=== PATIENT | female | born 1975 | race Caucasian/White ===

== ENCOUNTER 2017-04-13 22:11 | Emergency (ER) | payer OTHER ==
[2017-04-13 22:29] VITALS: BP 112/68; PULSE 85; TEMP 99.2; BMI 34.3
[2017-04-13] MEDS ORDERED: SODIUM CHLORIDE 1,000 ML IV STA (23:08)
--- NOTE | 2017-04-13 23:20 | PDOC ---
History of Present Illness - General History Source: Patient Exam Limitations: No Limitations - History of Present Illness Initial Comments: 04/13/17 23:37 The patient is a 41 year old female with a significant past medical history of anemia who presents to the ED with complaints of generalized weakness and lower quadrant pain since earlier today. The patient recently had an endoscopy with biopsy done secondary to weight gain on 04/07/17. She states her GI injected sclerosing agent during the procedure and the patient has been on a liquid diet for a week. The patient reports she woke up today with a sudden onset of generalized weakness and lower quadrant pain. She reports nausea and chills associated with present symptoms. She took a tylenol earlier today with slight relief of present symptoms. Patient also reports multiple episodes of watery stool since Friday. She states everything she drinks goes right through her. Patient states she developed dumping syndrome s/p gastric bypass. Patient notes her present symptoms feel similar to that of her history of dumping syndrome. She states her last menstrual cycle was several days ago. Denies chest pain or shortness of breath. Denies hematochezia. Denies dysuria or change in urinary output. Denies any other symptoms. Surgical Hx: Gastric bypass (7 years ago), endoscopy (04/07/17) GI: Dr. Sheba Rico [phone] <Jerod Matt - Last Filed: 04/13/17 23:50> <Lilia Ching - Last Filed: 04/14/17 00:12> - General Chief Complaint: Weakness Stated Complaint: WEAKNESS/DIZZINESS Time Seen by Provider: 04/13/17 22:41 Past History <Jerod Matt - Last Filed: 04/13/17 23:50> - Past Medical History Anemia: Yes Asthma: No Cancer: No Cardiac Disorders: No Diabetes: No HTN: No Seizures: No Thyroid Disease: No - Surgical History Abdominal Surgery: Yes (GASTRIC BYPASS) - Reproductive History Tubal Ligation: (essure) - Suicide/Smoking/Psychosocial Hx Smoking History: Never smoked Have you smoked in the past 12 months: No Information on smoking cessation initiated: No Hx Alcohol Use: No Drug/Substance Use Hx: No Substance Use Type: None Hx Substance Use Treatment: No <Lilia Ching - Last Filed: 04/14/17 00:12> - Past Medical History Allergies/Adverse Reactions: Allergies Allergy/AdvReac Type Severity Reaction Status Date / Time No Known Drug Allergies Allergy Verified 04/13/17 22:26 shrimp AdvReac Verified 04/13/17 22:26 Home Medications: Ambulatory Orders Ibuprofen [Motrin -] 600 mg PO Q4H PRN 12/16/15 Amoxicillin/Potassium Clav [Augmentin 875-125 Tablet] 1 each PO Q12H #10 tablet 12/17/15 Docusate Sodium [Colace -] 100 mg PO DAILY #30 capsule 12/17/15 Ferrous Sulfate [Feosol] 325 mg PO TID #90 tablet 12/17/15 Review of Systems - Review of Systems Able to Perform ROS?: Yes Comments:: 04/13/17 23:37 CONSTITUTIONAL: + chills, generalized weakness No reported: Fever, Diaphoresis, Malaise, Loss of Appetite HEENT: No reported: Rhinorrhea, Nasal Congestion, Throat Pain, Throat Swelling, Difficulty Swallowing, Mouth Swelling, Ear Pain, Eye Pain, Visual Changes CARDIOVASCULAR: No reported: Chest Pain, Syncope, Palpitations, Irregular Heart Rate, Lightheadedness, Peripheral Edema RESPIRATORY: No reported: Cough, Shortness of Breath, SOB with Exertion, Orthopnea, Wheezing , Stridor, Hemoptysis GASTROINTESTINAL: + abdominal pain, nausea, diarrhea No reported: Abdominal Distension, Constipation, Melena, Hematochezia GENITOURINARY: No reported: Dysuria, Frequency, Urgency, Hesitancy, Flank Pain, Genital Pain MUSCULOSKELETAL: No reported: Myalgia, Arthralgia, Joint Swelling, Back pain, Neck Pain SKIN: No reported: Rash, Itching, Pallor HEMEATOLOGIC/IMMUNOLOGIC: No reported: Easy Bleeding, Easy Bruising, Lymphadenopathy, Frequent infections ENDOCRINE: No reported: Unexplained Weight Gain, Unexplained Weight Loss, Heat Intolerance , Cold Intolerance NEUROLOGIC: No reported: Headache, Focal Weakness, Paresthesias, Vertigo, Lightheadedness, Unsteady Gait, Seizure, Mental Status Changes, Incontinence PSYCHIATRIC: No reported: Anxiety, Depression All Other Systems: Reviewed and Negative <Jerod Matt - Last Filed: 04/13/17 23:50> *Physical Exam - Vital Signs Last Vital Signs Temp Pulse Resp BP Pulse Ox 99.2 F 85 18 112/68 99 04/13/17 22:27 04/13/17 22:27 04/13/17 22:27 04/13/17 22:27 04/13/17 22:27 - Physical Exam Comments: 04/13/17 23:37 GENERAL: Well developed, well nourished. Awake and alert. No acute distress. HEENT: Normocephalic, atraumatic. PERRLA, EOMI. No conjunctival pallor. Sclera are non- icteric. Moist mucous membranes. Oropharynx is clear. NECK: Supple. Full ROM. No JVD. Carotid pulses 2+ and symmetric, without bruits. No thyromegaly. No lymphadenopathy. CARDIOVASCULAR: Regular rate and rhythm. No murmurs, rubs, or gallops. Distal pulses are 2+ and symmetric. PULMONARY: No evidence of respiratory distress. Lungs clear to auscultation bilaterally. No wheezing, rales or rhonchi. ABDOMINAL: + Tenderness to the mid epigastric Soft. Non-distended. No rebound or guarding. No organomegaly. Normoactive bowel sounds. MUSCULOSKELETAL Normal range of motion at all joints. No bony deformities or tenderness. No CVA tenderness. EXTREMITIES: No cyanosis. No clubbing. No edema. No calf tenderness. SKIN: Warm and dry. Normal capillary refill. No rashes. No jaundice. NEUROLOGICAL: Alert, awake, appropriate. Cranial nerves 2-12 intact. No deficits to light touch and temperature in face, upper extremities and lower extremities. No motor deficits in the in face, upper extremities and lower extremities. Normoreflexic in the upper and lower extremities. Normal speech. Toes are down- going bilaterally. Gait is normal without ataxia. PSYCHIATRIC: Cooperative. Good eye contact. Appropriate mood and affect. <Jerod Matt - Last Filed: 04/13/17 23:50> - Vital Signs Last Vital Signs Temp Pulse Resp BP Pulse Ox 99.2 F 85 18 112/68 99 04/13/17 22:27 04/13/17 22:27 04/13/17 22:27 04/13/17 22:27 04/13/17 22:27 <Lilia Ching - Last Filed: 04/14/17 00:12> ED Treatment Course - LABORATORY CBC & Chemistry Diagram: 04/13/17 23:23 04/13/17 23:23 <Jerod Matt - Last Filed: 04/13/17 23:50> - LABORATORY CBC & Chemistry Diagram: 04/13/17 23:23 04/13/17 23:23 <Lilia Ching - Last Filed: 04/14/17 00:12> Medical Decision Making - Medical Decision Making 04/13/17 23:[address] Sheba Rico at 23:10 <Jerod Matt - Last Filed: 04/13/17 23:50> - Medical Decision Making 04/13/17 23:16 41-year-old female presents with generalized weakness, increased watery stools and low-grade fever 1 week after having an endoscopy and injection of sclerosing agents into her remaining pouch. She did have a gastric bypass about 7 years ago, but she hadn't regained some of her weight. In attempt to avoid repeat gastric surgery, bypass surgery. This procedure was done. Dr. Sheba Rico as a surgeon and she responded to please. She said it is not uncommon for them to feel very weak. Because of the severe calorie restriction. She said that very often will have a temperature between 99 in the 100. The patient is on a liquid diet. She may have chicken broth, Gatorade , and protein shakes but no solid food. The plan is to check her labs and electrolytes, give her IV fluids to make she she not dehydrated She is to call Dr. Sheba Rico tomorrow to make a follow-up appointment this week 04/13/17 23:44 04/14/17 00:08 Patient has anemia Her hemoglobin is 9. Her hematocrit is 30.5. In reviewing her old lab results in the past. She has a chronic anemia and this actually and is actually a good values for her. \ In reviewing her chemistries on her electrolytes are within normal limits. Liver function tests and glucose are fine. She has a negative test I spoke to her about the symptoms of feeling weak and explained that this is due to his severe caloric decreased that she's had this week She is to call Dr. Sheba Rico tomorrow to make an appointment to be seen this week in her office <Lilia Ching - Last Filed: 04/14/17 00:12> *DC/Admit/Observation/Transfer - Attestations Scribe Attestion: 04/13/17 23:38 Documentation prepared by Jerod Matt, acting as medical doctor nuclear medicine for Lilia Ching MD <Jerod Matt - Last Filed: 04/13/17 23:50> <Lilia Ching - Last Filed: 04/14/17 00:12> Diagnosis at time of Disposition: Chronic anemia, Weakness - Discharge Dispostion Disposition: HOME Condition at time of disposition: Stable - Referrals Referrals: Christelle Alvarado [Primary Care Provider] - - Patient Instructions Printed Discharge Instructions: DI for Upper GI Endoscopy Additional Instructions: PLEASE SEE DR SHEBA RICO THIS WEEK.CALL FOR AN APPOINTMENT AND TAKE YOUR LAB WORK WITH YOU WHEN YOU GO RETURN FOR ANY WORSENING SYMPTOMS
[2017-04-13 23:39] LABS: BASOPHIL 0.5 % (0-2.0); EOSINOPHIL 0.2 % (0-4.5); MCHC 29.5 g/dl (32.0-36.0); MEAN CELL VOLUME 66.2 fl (80-96); MEAN PLT VOLUME 7.4 fl (7.5-11.1); NEUTROPHILS 63.2 % (42.8-82.8); PLATELET COUNT 382 K/MM3 (134-434); RDW 19.7 % (11.6-15.6); WHITE BLOOD COUNT 4.9 K/mm3 (4.0-10.0)
[2017-04-13 23:42] LABS: MCH 19.5 pg (25.7-33.7)
[2017-04-13 23:53] LABS: ALBUMIN 3.4 g/dl (3.4-5.0); ALK PHOS 103 U/L (45-117); ANION GAP 9 (8-16); BILIRUBIN,TOTAL 0.4 mg/dL (0.2-1.0); CALCIUM 8.5 mg/dL (8.5-10.1); CO2 24 mmol/L (21-32); CREATININE 0.7 mg/dL (0.55-1.02); GLUCOSE,RANDOM 105 mg/dL (74-106); SGOT/AST 21 U/L (15-37); SGPT/ALT 21 U/L (12-78); TOT PROT 7.6 g/dl (6.4-8.2)
[2017-04-13 23:59] LABS: ANISOCYTOSIS 1+; HYPOCHROMIA 3+; MICROCYTOSIS 1+; PLATELET ESTIMATE ADEQUATE (NORMAL)
[2017-04-14] MEDS ORDERED: ACETAMINOPHEN 325 MG TABLET (FP) ONE (00:22)
[2017-04-14] MEDS ORDERED: ACETAMINOPHEN 325 MG TABLET (FP) PO ONE (00:22)
== END 2017-04-14 00:26 | disposition home or self-care (01) ==
LOC: JER 22:11
PROC: 3E0337Z Introduction of Electrolytic and Water Balance Substance into Peripheral Vein, Percutaneous Approach (ICD-10-PCS; principal; 2017-04-13)
DX: R53.1 Weakness (principal); Z98.890 Other specified postprocedural states
CPT/HCPCS: 36415; 80053; 83690; 84703; 85025; 99282-25

== ENCOUNTER 2025-02-09 21:34 | Emergency (ER) | payer OTHER ==
[2025-02-09 22:01] VITALS: RESP 18; TEMP 97.9; BMI 33.7
[2025-02-09 23:21] LABS: ABSOLUTE IMMATURE GRANULOCYTES 0.02 x10^3/uL (0.0-0.031); BASOPHILS # 0.04 x10^3/uL (0.01-0.08); EOSINOPHIL % 1.0 % (0.7-5.8); EOSINOPHILS # 0.07 x10^3/uL (0.04-0.36); MCHC 32.4 g/dl (32.2-35.5); MEAN CELL VOLUME 99.3 fl (79.4-94.8); MEAN PLT VOLUME 8.6 fl (9.4-12.3); MONOCYTE # 0.41 x10^3/uL (0.24-0.86); MONOCYTE % 5.6 % (4.7-12.5); RDW 13.4 % (12.2-17.1)
[2025-02-09] MEDS: SODIUM CHLORIDE 0.9% 500 ML INFUS.BAG IV ONE (23:24)
[2025-02-09 23:45] LABS: CO2 26.0 mmol/L (21-32); GLUCOSE,RANDOM 80.0 mg/dL (74-106)
[2025-02-09 23:48] LABS: CREATININE 0.7 mg/dL (0.55-1.3); SGOT/AST 23.0 U/L (15-37); SGPT/ALT 23.0 U/L (13-61)
[2025-02-09 23:50] LABS: TOT PROT 8.1 g/dl (6.4-8.2)
[2025-02-09 23:51] LABS: ALK PHOS 122.0 U/L (45-117)
[2025-02-10 00:56] VITALS: BP 110/69; PULSE 59
[2025-02-10] MEDS ORDERED: POTASSIUM CHLORIDE ORAL LIQUID 20 MEQ/15 ML ONE (01:21)
[2025-02-10] MEDS ORDERED: POTASSIUM CHLORIDE TABS 20 MEQ TABLET.ER (FP) PO ONE (01:24)
[2025-02-10] MEDS: POTASSIUM CHLORIDE ORAL LIQUID 20 MEQ/15 ML PO ONE (01:57)
[2025-02-10] MEDS: POTASSIUM CHLORIDE TABS 20 MEQ TABLET.ER (FP) PO ONE ×2 (01:57)
== END 2025-02-10 01:58 | disposition home or self-care (01) ==
LOC: JER 21:34
DX: F10.129 Alcohol abuse with intoxication, unspecified (principal)
CPT/HCPCS: 36415; 70450-TC; 71046-TC-FY; 72125-TC; 80053; 82962; 83735; 84484; 85025; 93005; 93010; 99285-25